=== PATIENT | female | born 1945 | race African-American/Black ===

== ENCOUNTER 2020-02-26 18:48 | Emergency (ER) | payer OTHER ==
[~2020-02-26] VITALS: Ht 165.1 cm; Wt 70.3 kg
[~2020-02-26 18:48] MED LIST: ATEN1TAB38; CLON1TAB PO; GABA300C; GABA300C PO; LISI-646 PO; NOR10T PO; OMEG300C5
[2020-02-26] MEDS ORDERED: cloNIDine HCL 0.1 MG TAB PO ONE (19:00)
[2020-02-26 19:58] LABS: Basophils # (auto) 0.1 10 ^3/uL (0-0.2); Basophils % (auto) 0.6 % (0.0-2.0); Eosinophils # (auto) 0.1 10 ^3/uL (0-0.8); Eosinophils % (auto) 1.6 % (0.0-7.0); Hematocrit 39.3 % (36.0-46.0); Hemoglobin 12.4 g/dL (12.2-16.2); Lymphocytes # (auto) 1.3 10 ^3/uL (0.4-5.4); Lymphocytes % (auto) 14.9 % (10.0-50.0); Mean Corpuscular Hemoglobin 28.3 pg (28.0-32.0); Mean Corpuscular Hgb Conc. 31.6 g/dL (32.0-36.0); Mean Corpuscular Volume 89.7 fL (80.0-100.0); Monocytes # (auto) 0.7 10 ^3/uL (0-1.3); Monocytes % (auto) 8.3 % (0.0-12.0); Neutrophils # (auto) 6.5 10 ^3/uL (1.6-8.6); Neutrophils % (auto) 74.6 % (37.0-80.0); Nucleated Red Blood Cells % 0.1 %; Platelet Count (auto) 219 10^3/uL (140-450); Red Blood Cells 4.38 10^6/uL (4.0-5.20); White Blood Cell 8.7 10^3/uL (4.4-10.8)
[2020-02-26 20:00] LABS: Blood Urea Nitrogen 14 mg/dL (7-18); Chloride 108 mmol/L (98-107); Potassium 3.1 mmol/L (3.5-5.1); Sodium 139 mmol/L (136-145)
[2020-02-26 20:10] LABS: Alanine Aminotransferase 19 U/L (13-56); Albumin 3.8 g/dL (3.4-5.0); Alkaline Phosphatase 73 U/L (45-117); Anion Gap 8 (5-15); Aspartate Aminotransferase 27 U/L (15-37); BUN/Creatinine Ratio 13.7; Calcium 9.1 mg/dL (8.5-10.1); Carbon Dioxide 23 mmol/L (21-32); GFR African American 68 mL/min; GFR Non-African American 56 mL/min; Glucose 119 mg/dL (74-106); INR 1.04 (0.9-1.15); Magnesium 2.2 mg/dL (1.6-2.6); Partial Thromboplastin Time 22.4 sec (23.0-31.2); Total Protein 7.7 g/dL (6.4-8.2)
[2020-02-26] MEDS ORDERED: clonazePAM 0.5 MG TAB PO ONE (21:00)
[2020-02-26] MEDS ORDERED: GABAPENTIN 300 MG CAP PO ONE (21:00)
[2020-02-26 22:00] VITALS: BP 109/67
== END 2020-02-26 23:28 | disposition home or self-care (01) ==
LOC: EDBD 18:48 → ER 18:48
DX: G40.909 Epilepsy, unspecified, not intractable, without status epilepticus (principal); I10 Essential (primary) hypertension; E78.5 Hyperlipidemia, unspecified; F32.9 Major depressive disorder, single episode, unspecified; Z90.49 Acquired absence of other specified parts of digestive tract
CPT/HCPCS: 36415; 70450; 71045; 80053; 83735; 83880; 84484; 85025; 85610; 85730; 93005; 96365; 99285; J1953; J7060

== ENCOUNTER 2025-04-16 09:12 | Emergency (ER) | payer OTHER ==
[~2025-04-16] VITALS: Ht 160 cm; Wt 58.8 kg
[~2025-04-16 09:12] MED LIST changes: +CLON-1004 PO; -CLON1TAB PO; -LISI-646 PO; +LISI20TA56 PO
--- NOTE | 2025-04-16 09:31 | ECG ---
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
--- NOTE | 2025-04-16 10:48 | ED.PDOC ---
GI ASSESSMENT HPI Comments HPI: This is a 80 year old female presenting to the ED with chief complaint of abdominal pain. Patient reports that she has been experiencing LLQ abdominal pain with associated diarrhea, and chest/epigastric abdominal tightness for the past year, worsening over the past 5 days. Patient relays that she has history of gallstones and stone removal along with endoscopy performed last on December 2023. Patient denies any nausea, vomiting, dizziness, fever, chills, or dysuria. Initial Vitals BP: 169/109 HR: 82 RR: 18 O2: 82% on RA Temp: 98.1F Past Medical History: HTN, HLD, Depression, Anxiety, CVA, Seizures Past Surgical History: Endoscopy and stone removal and stent placement. Hysterectomy Social History: Denies ETOH, smoking, and drug use. Medications: Reviewed Allergies: Aspirin, Clonazepam, Gabapentin, Morphine, Penicillin, Phenytoin, Sulfa HPI: Poor Historian. REVIEW OF SYSTEMS: CONSTITUTIONAL: Denies acute: fever, diaphoresis, chills, HEAD: Denies acute: headache, photophobia Eyes: Denies acute: Double vision, vision loss, eye pain, eye discharge. EARS: Denies acute: tinnitus, hearing loss, ear discharge, ear pain, THROAT: Denies acute: sore throat, swelling, difficulty swallowing , pain with swallowing, change in voice. NECK: Denies acute: neck pain, neck swelling, stiff neck. HEART: Denies acute : chest pain, palpitations, LUNGS: Denies acute: SOB, wheezing, cough, hemoptysis ABDOMEN: Denies acute: Nausea, Vomiting, melena , hematemesis, hematochezia SKIN: Denies acute: rash, redness, lesions, itchiness. EXTREMITIES: Denies acute: calf pain, numbness, tingling, weakness, denies pain in extremity. Denies acute: Low back pain. Neuro: Denies acute: focal neurological deficit, motor or sensory focal neurological deficit, tremors, seizure like activity, confusion, dizziness, change in mental status, loss of bowel or bladder function, cauda equina like symptoms. : Denies acute: dysuria, hematuria, flank pain, increase in urinary frequency. PSYCH: Denies acute: hallucination, suicidal ideation, homicidal ideation. FEMALE: Denies acute: abnormal vaginal bleeding, foul odor, unusual discharge. PHYSICAL EXAM: General: -----mild---acute distress, awake and alert. Head: normocephalic, atraumatic. Neck: supple, trachea is midline, no swelling. Throat: Normal phonation. Eyes:, no erythema, no purulent discharge, no proptosis, no icterus. Heart: regular rate, regular rhythm, no significant murmur appreciated. Lungs: no apparent respiratory distress, Able to speak in full sentences. No wheezing, no rhonchi, no crackles. No stridors Clear to auscultation bilaterally. Abdomen: LLQ and epigastric tender to palpation, non distended, soft, no guarding, no rebound, + bowel sounds. Neuro: Awake, Alert, oriented to name, self, situation, follows commands GCS=15. Speech is normal. Skin: no petechia, no purpura, no cyanosis, non-pale, not jaundice. Lower extremities: --no - Pitting edema no deformity, no focal swelling, no calf TTP. Makes eye contact. moves all four extremities. Face: no apparent facial droop. Ambulating in the ED independently. ED COURSE: DISCLAIMER: This medical document was created using an electronic medical record system with voice recognition software and computerized dictation system. Although this document has been carefully reviewed, there might still be some phonetic and typographical errors. Occasional wrong-word or "sound-alike" substitutions may have occurred due to the inherent limitations of voice recognition software. These areas are purely typographical due to imperfections of the software programs and do not reflect any compromise in the patient's medical care. Please read the chart carefully and recognize, using context, where these substitutions have occurred. Chief Complaint: Abdominal Pain Time Seen by MD: 10:43 Primary Care Provider: ISAURA Reviewed Notes: Medications, Allergies Allergies: Coded Allergies: Aspirin (Verified Allergy, Unknown, 01/21/16) Clonazepam (Verified Allergy, Unknown, 01/21/16) Fentanyl (Verified Allergy, Unknown, 04/16/25) Gabapentin (Verified Allergy, Unknown, 01/21/16) Morphine (Verified Allergy, Unknown, 04/16/25) NAUSEA/VOMITTING Penicillin G (Verified Allergy, Unknown, 01/21/16) Phenytoin (Verified Allergy, Unknown, 01/21/16) Sulfa Drugs (Verified Allergy, Unknown, 01/21/16) Uncoded Allergies: BENITOL (Allergy, Unknown, 04/16/25) Home Meds Reported Medications Hydrocodone-Acetaminophen ([place] 10/325MG) 1 Tab Tb, 1 TAB PO QID, #120 TAB 01/21/16 Lisinopril (Lisinopril) 20 Mg Tab, 20 MG PO BID for 30 Days, MG 01/21/16 Gabapentin (Neurontin) 300 Mg Cap, 1 CAP PO BID, #90 CAP 3 Refills 01/21/16 Clonazepam (Klonopin) 1 Mg Tab, 2 TAB PO HS, #90 TAB 1 Refill 01/21/16 Dha/Epa(Docosahexaenoic/Eicosa (Fish Oil) 300 Mg Cap 03/07/12 Atenolol (Tenormin) 25 Mg Tb 03/07/12 Gabapentin (Neurontin) 300 Mg Cap 03/07/12 Information Source: Patient, Relative Mode of Arrival: Ambulatory Past Medical History PAST MEDICAL HISTORY: Anxiety, CVA, Depression, High Lipids, HTN, Seizures Surgical History: Cholecystectomy, Hysterectomy RN BABY History: No Pertinent RN BABY History Family History Family History: Reviewed,noncontributory to illness Social History Smoker: Non-Smoker Alcohol: Denies ETOH Use Drugs: Denies Drug Use Lives In: Home Was a procedure done? Was a procedure done?: No GI differential Dx Differential Diagnosis: Other (As far as abdominal pain: DDX include Diverticulitis, colitis, gastroenteritis, acute abdomen, SBO, enteritis, constipation, volvulus, appendicitis, Gallbladder disease, choledocolithiasis, ascending cholangitis, pancreatitis, intraAbdominal mass/neoplasm, hepatitis, UTI, pylonephritis, kidney stone, aneurysm, dissection, Inflammatory bowel disease, gastroparesis, ischemic bowel,,,,,, ) Other Differential Diagnosis As far as chest pain: Ddx include but not limitied to gastritis, musculoskeletal pain, radiculopathy, atypical chest pain, dissection, aneurysm, ACS, unstable angina, hiatal hernia, GERD, anxiety, costochondritis, PE, pneumothroax, neoplasm, cardiac ischemia, drug abuse, anemia. X-Ray, Labs, Meds, VS Vital Signs Date Time Temp Pulse Resp B/P (MAP) Pulse Ox O2 Delivery O2 Flow Rate FiO2 04/16/25 18:21 159/106 04/16/25 17:50 97.9 63 14 159/106 (123) 95 97.9 04/16/25 15:16 97.5 73 78 184/99 (127) 97 97.5 04/16/25 09:24 63 04/16/25 09:15 98.1 82 18 169/109 82 98.1 Lab Test 04/16/25 14:53 04/16/25 12:55 04/16/25 12:42 04/16/25 11:25 Range/Units Troponin I High Sensitivity 5 5 5 </=34 ng/L Urine Color Yellow Yellow Urine Clarity Turbid H Clear Urine pH 6.0 5.0-9.0 Urine Specific [place] 1.030 1.001-1.035 Urine Protein Trace H Negative Urine Ketones Negative Negative Urine Blood Trace H Negative /uL Urine Nitrite Negative Negative Urine Bilirubin Negative Negative Urine Urobilinogen Normal Negative mg/dL Urine Leukocyte Esterase Trace Negative /uL Urine RBC 14 0 - 4 /hpf Urine Microscopic WBC 3 0-5 /HPF Urine Squamous Epithelial Cells Few <5 /hpf Urine Bacteria None seen None Seen /hpf Urine Mucus Few None Seen Urine Glucose Normal Normal mg/dL White Blood Count 5.8 4.4-10.8 10^3/uL Red Blood Count 3.52 L 4.0-5.20 10^6/uL Hemoglobin 10.6 L 12.2-16.2 g/dL Hematocrit 33.3 L 36.0-46.0 % Mean Corpuscular Volume 94.5 80.0-100.0 fL Mean Corpuscular Hemoglobin 30.1 28.0-32.0 pg Mean Corpuscular Hemoglobin Concent 31.9 L 32.0-36.0 g/dL Red Cell Distribution Width 14.6 H 11.8-14.3 % Platelet Count 206 140-450 10^3/uL Mean Platelet Volume 8.3 6.9-10.8 fL Neutrophils (%) (Auto) 56.9 37.0-80.0 % Lymphocytes (%) (Auto) 29.5 10.0-50.0 % Monocytes (%) (Auto) 8.7 0.0-12.0 % Eosinophils (%) (Auto) 4.1 0.0-7.0 % Basophils (%) (Auto) 0.8 0.0-2.0 % Neutrophils # (Auto) 3.3 1.6-8.6 10 ^3/uL Lymphocytes # (Auto) 1.7 0.4-5.4 10 ^3/uL Monocytes # (Auto) 0.5 0-1.3 10 ^3/uL Eosinophils # (Auto) 0.2 0-0.8 10 ^3/uL Basophils # (Auto) 0 0-0.2 10 ^3/uL Nucleated Red Blood Cells 0.1 % Sodium Level 160 H 136-145 mmol/L Potassium Level 3.4 L 3.5-5.1 mmol/L Chloride Level 95 L 98-107 mmol/L Carbon Dioxide Level 21 20-31 mmol/L Anion Gap 44 H 5-15 Blood Urea Nitrogen 9 9-23 mg/dL Creatinine 0.79 0.550-1.02 mg/dL Glomerular Filtration Rate Calc 75 >90 mL/min BUN/Creatinine Ratio 11.4 10.0-20.0 Serum Glucose 71 L 74-106 mg/dL Lactic Acid Level 1.7 0.4-2.0 mmol/L Calcium Level 8.0 L 8.7-10.4 mg/dL Total Bilirubin 0.7 0.2-1.0 mg/dL Aspartate Amino Transferase (AST) 19 13-40 U/L Alanine Aminotransferase (ALT) < 9 7-40 U/L Alkaline Phosphatase 55 46-116 U/L Total Protein 6.9 5.7-8.2 g/dL Albumin 3.8 3.2-4.8 g/dL Lipase 31 12-53 U/L [place] [id number] Ph: [phone] DIAGNOSTIC IMAGING Diagnostic Imaging Report : [id number] Signed PATIENT: JORDAN RUANO ACCT: [id number] UNIT: [id number] : 1945 LOC: ER ROOM / BED: / AGE / SEX: 80 / F ADM STATUS: REG ER SERVICE 1053 ORDERING PHYSICIAN: TULIO MENENDEZ DO PROCEDURE(s): ABPL - CT AB PEL WO CON-NO ORAL OR IV REASON: epig pain, LLQ pain ORDER NUMBER(s): [id number], ACCESSION NUMBER(s): [id number] Indication: epig pain, LLQ pain Technique: CT axial images of the abdomen and pelvis are obtained without contrast. Coronal and sagittal reformats were obtained. Radiation Dose Information: CTDI volume is 5.1 mGy. Dose-length product is 263 mGy*cm Comparison: None FINDINGS: There is limited interpretation of the abdomen and pelvis without administration of intravenous contrast. The lung bases demonstrate atelectasis. Coronary artery calcification disease. Adrenal glands, spleen, pancreas unremarkable in shape. Cholecystectomy. Dilated CBD measuring 15 mm. Pneumobilia. 7 mm right hepatic lobe hypodensity, too small to characterize statistically likely represent cysts. No hydronephrosis /nephrolithiasis. Small hiatal hernia. Postsurgical changes at the GE junction. Small bowel loops are normal in caliber. Colonic diverticular disease. Moderate volume stool in the colon. Abdominal aortic atherosclerotic disease. Bladder partially distended. No free pelvic fluid. No inguinal lymphadenopathy. 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 Moderate to advanced thoracolumbar degenerative disc disease. 7 mm anterolisthesis of L4 upon L5. S shaped curvature of the thoracolumbar spine. IMPRESSION: Limited evaluation without contrast. Colonic diverticular disease. Cholecystectomy. Dilated CBD which may be secondary to reservoir effect. Correlate clinically to exclude obstructing ampullary/ biliary etiology. Pneumobilia which can be secondary to incompetence ampullary sphincter. Other considerations include cholangitis, recent instrumentation. Postsurgical changes of the GE junction. Small hiatal hernia. Atherosclerotic disease. Other findings as described ATED BY: RONNIE PAZ MD DICTATED DATE/TIME: 04/16/251219 SIGNED BY: RONNIE PAZ MD SIGNED DATE/TIME: 04/16/250 CC: Time of 1ST Reevaluation: 11:42 Reevaluation 1ST: Unchanged Time of 2ND Reevaluation: 13:05 (The case was discussed with the [facility] admitting team (HPI, physical exam, labs and diagnostic tests that were available at the time of disposition, ED course, treatment plan) on the phone. They agreed to transfer the patient to their service by ALS for further evaluation and treatment. --[email or web address]-. Authorization number is--[id number]) Time of 3RD Reevaluation: 17:59 (Patient did not want any IV medication for her blood pressure. She takes hydralazine 20 mg b.i.d.. We ordered one of her home doses here while she is waiting for transfer.) Patient Education/Counseling: Diagnosis, Treatment Family Education/Counseling: Diagnosis, Treatment Comments MDM: patient presented with the above HPI.-abdominal pain/chest pain-----workup was initiated. patient was found with the above mentioned diagnosis. the following medications were ordered: please refer to order lists of meds and tests obtained by myself Dr. Menendez. Patient ED course and VS have been stabilized. Patient has been reassessed in the ED and remained in a stable condition. Pertinent incidental findings were discussed with the patient and/or family. Patient/family voices understanding and is agreeable with plan. Patient has been observed in the ED adequate length of time to insure improvement/stability. Escalation of care considered: Consideration of escalation to observation or admission Patient was given blood pressure medication Patient was transferred per insurance requirement for further evaluation and treatment of their presentation. All the reports of any imaging studies that were ordered by myself were reviewed by myself. Departure 1 Departure Time of Disposition: 12:15 Impression: Primary Impression: Left lower quadrant pain Additional Impressions: Diarrhea Hypernatremia Chest pain Disposition: 02 SHORT TERM HOSPITAL Admit to: Tele Condition: Guarded Discharged With: Self Critical Care Note Critical Care Time?: Yes (45 min-critical care time only) I personally scribed for TULIO MENENDEZ DO ([email or web address]) on 04/16/25 at 10:48. Electronically submitted by Capo Holland ([email or web address]). I personally scribed for TULIO MENENDEZ DO ([email or web address]) on 04/16/25 at 12:58. Electronically submitted by Capo Holland ([email or web address]). TULIO MENENDEZ DO Apr 16, 2025 10:48
[2025-04-16 11:46] LABS: Hematocrit 33.3 % (36.0-46.0); Hemoglobin 10.6 g/dL (12.2-16.2); Mean Corpuscular Hemoglobin 30.1 pg (28.0-32.0); Mean Corpuscular Volume 94.5 fL (80.0-100.0); Nucleated Red Blood Cells % 0.1 %
[2025-04-16 12:06] LABS: Albumin 3.8 g/dL (3.2-4.8); Alkaline Phosphatase 55 U/L (46-116); Anion Gap 44 (5-15); BUN/Creatinine Ratio 11.4 (10.0-20.0); Carbon Dioxide 21 mmol/L (20-31); Lipase 31 U/L (12-53); Total Protein 6.9 g/dL (5.7-8.2)
[2025-04-16 12:07] LABS: Bilirubin, Total 0.7 mg/dL (0.2-1.0)
[2025-04-16 12:08] LABS: Alanine Aminotransferase < 9 U/L (7-40); Blood Urea Nitrogen 9 mg/dL (9-23); Calcium 8.0 mg/dL (8.7-10.4); Chloride 95 mmol/L (98-107); Glucose 71 mg/dL (74-106); Potassium 3.4 mmol/L (3.5-5.1); Sodium 160 mmol/L (136-145)
--- NOTE | 2025-04-16 12:13 | DVH ---
XY CHEST PORTABLE, HISTORY: cp COMPARISON: None None TECHNICAL DATA: 1 view of the chest was obtained. FINDINGS: Lines and tubes: None Cardiomediastinal silhouette: normal Pulmonary vasculature: normal Lung expansion: normal Lung airspace: normal Lung interstitium: normal Pleura: normal Pneumothorax: no Bones: A left shoulder arthroplasty is visualized. Other: no IMPRESSION: No acute intrathoracic abnormality.
--- NOTE | 2025-04-16 12:18 | DVH ---
Indication: epig pain, LLQ pain Technique: CT axial images of the abdomen and pelvis are obtained without contrast. Coronal and sagit paul reformats were obtained. Radiation Dose Information: CTDI volume is 5.1 mGy. Dose-length product is 263 mGy*cm Comparison: None FINDINGS: There is limited interpretation of the abdomen and pelvis without administration of intravenous contr ast. The lung bases demonstrate atelectasis. Coronary artery calcification disease. Adrenal glands, spleen, pancreas unremarkable in shape. Cholecystectomy. Dilated CBD measuring 15 mm . Pneumobilia. 7 mm right hepatic lobe hypodensity, too small to characterize statistically likely r epresent cysts. No hydronephrosis /nephrolithiasis. Small hiatal hernia. Postsurgical changes at the GE junction. Small bowel loops are normal in calibe r. Colonic diverticular disease. Moderate volume stool in the colon. Abdominal aortic atherosclerotic disease. Bladder partially distended. No free pelvic fluid. No ingui nal lymphadenopathy. 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 Moderate to advanced thoracolumbar degenerative disc disease. 7 mm anterolisthesis of L4 upon L5. S shaped curvature of the thoracolumbar spine. IMPRESSION: Limited evaluation without contrast. Colonic diverticular disease. Cholecystectomy. Dilated CBD which may be secondary to reservoir effect. Correlate clinically to ex clude obstructing ampullary/ biliary etiology. Pneumobilia which can be secondary to incompetence ampullary sphincter. Other considerations include cholangitis, recent instrumentation. Postsurgical changes of the GE junction. Small hiatal hernia. Atherosclerotic disease. Other findings as described
[2025-04-16 12:59] LABS: Urine Protein, UAD TRACE (Negative)
[2025-04-16 17:50] VITALS: BP 159/106; PULSE 63; RESP 14; TEMP 97.9; O2SAT 95
[2025-04-16] MEDS: HYDROcodone-ACET 5/325MG TAB ONE (18:20)
[2025-04-16] MEDS: SODIUM CHLORIDE 0.9% 1,000 ML IV ONE (18:21)
[2025-04-16] MEDS: HYDROcodone-ACET 5/325MG TAB PO ONE (18:22)
== END 2025-04-16 18:07 | disposition short-term general hospital (02) ==
LOC: ER 09:17
DX: E87.0 Hyperosmolality and hypernatremia (principal); R10.32 Left lower quadrant pain; R19.7 Diarrhea, unspecified; R07.89 Other chest pain; F41.9 Anxiety disorder, unspecified; F32.A Depression, unspecified; E78.5 Hyperlipidemia, unspecified; I10 Essential (primary) hypertension; Z86.73 Personal history of transient ischemic attack (TIA), and cerebral infarction without residual deficits; Z88.0 Allergy status to penicillin; Z79.899 Other long term (current) drug therapy; Z88.2 Allergy status to sulfonamides; Z88.5 Allergy status to narcotic agent; Z88.6 Allergy status to analgesic agent; Z88.8 Allergy status to other drugs, medicaments and biological substances; Z90.49 Acquired absence of other specified parts of digestive tract; Z90.710 Acquired absence of both cervix and uterus
CPT/HCPCS: 36415; 71045; 74176; 80053; 81001; 83605; 83690; 84484; 85025; 93005